=== PATIENT | female | born 1970 | race American Indian/Alaskan Native ===

== ENCOUNTER 2019-04-25 08:02 | Outpatient (CLI) | payer BC ==
--- NOTE | 2019-04-25 09:06 | Mammography Report ---
DIGITAL SCREENING MAMMOGRAM WITH CAD, 04/25/2019 INDICATION: Routine screening mammography. Status post left axillary lymph node biopsy 09/07/2018. TECHNIQUE: Digital bilateral 2D mammography was obtained in the craniocaudal and mediolateral obliq ue projections. COMPARISON: 09/07/2018 and 08/08/2013 FINDINGS: Breast Density: The breasts are heterogeneously dense, which may obscure small masses. Scattered bila teral benign calcifications. The previously biopsied left axillary lymph node is no longer identified . There is no evidence of dominant mass, suspicious calcifications or architectural distortion in eit her breast. IMPRESSION: BI-RADS Category 2: Benign. No mammographic evidence of malignancy. Recommend routine screening ma mmography in one year. A "normal" or negative report should not discourage follow up or biopsy of a clinically significant f inding. A written summary of these findings will be mailed to the patient. The patient will be entered into a mammography reporting system which will generate a reminder letter for the patient's next appointmen t at the appropriate interval. The [employer] recommends yearly mammograms starting at age 40 and continuing as l thiago as a woman is in good health. Breast MRI is recommended for women with an approximate 20-25% or greater lifetime risk of breast cancer, including women with a strong family history of breast or ova hafsa cancer or who have been treated for Hodgkin's disease. Signer Name: Marvin Trinidad MD Signed: 04/25/2019 10:01 AM Workstation Name: [id number]
== END 2019-04-25 08:03 | disposition home or self-care (01) ==
LOC: SPVWC 08:02
PROVIDERS: ATTEND Surgery
DX: Z12.31 Encounter for screening mammogram for malignant neoplasm of breast (principal); I10 Essential (primary) hypertension; E11.9 Type 2 diabetes mellitus without complications; E66.9 Obesity, unspecified
CPT/HCPCS: 77067

== ENCOUNTER 2021-03-19 18:20 | Inpatient (IN) | payer BC ==
--- NOTE | 2021-03-19 20:06 | Event Note ---
ED Screening Note Date of service: 03/19/21 Time: 20:05 ED Screening Note: Patient presents to the ER today with worsening shortness of breath for the past 3 months. He also reports elevated blood pressure today. Past medical history significant for sleep apnea, arthritis, hypertension, and asthma. Patient admits that her blood pressure has never been really well controlled on her blood pressure medication but when she went to a local urgent care today for shortness of breath it was noted that her blood pressure was in the 200s systolic and she was sent to to the ER. Patient states that she uses her albuterol MDI as needed but over the past 3 months has not been working. She reports intermittent productive cough and wheezing. She denies any chest pain, leg swelling or calf pain. This initial assessment/diagnostic orders/clinical plan/treatment(s) is/are subject to change based on patients health status, clinical progression and re- assessment by fellow clinical providers in the ED. Further treatment and workup at subsequent clinical providers discretion. Patient/guardian urged not to elope from the ED as their condition may be serious if not clinically assessed and managed. Initial orders include: Cardiac work-up
--- NOTE | 2021-03-19 20:37 | XRay Report ---
XR chest routine 2V INDICATION / CLINICAL INFORMATION: Dyspnea COMPARISON: None available. FINDINGS: SUPPORT DEVICES: None. HEART / MEDIASTINUM: Prominent cardiac silhouette LUNGS / PLEURA: Mild peribronchial thickening. Blunting of the costophrenic sulci. No pneumothorax. ADDITIONAL FINDINGS: No significant additional findings. IMPRESSION: 1. Prominent cardiac silhouette with interstitial edema and small bilateral pleural effusions. Signer Name: Elvin Alicea MD Signed: 03/19/2021 8:32 PM Workstation Name: [id number]
--- NOTE | 2021-03-19 20:43 | Emergency Department Report ---
ED Shortness of Breath HPI - General Chief Complaint: Dyspnea/Respdistress Stated Complaint: SOB, ELEVATED BLOOD PRESSURE Time Seen by Provider: 03/19/21 20:38 Source: patient Mode of arrival: Ambulatory Limitations: No Limitations - History of Present Illness Initial Comments: Patient is a 50-year-old female that presents emergency room with complaints of shortness of breath. Patient states that her shortness of breath been going on for 3 months. Patient states that her shortness of breath is worsening. Patient states that her shortness of breath is better with rest and worse with exertion. Patient states she is also having elevated blood pressure. Patient states her systolic is greater than 200 all the time. Patient states she has seen her primary care and they did keep increasing her asthma inhaler. Patient states she is using her albuterol multiple times per day. Patient states that her shortness of breath sometimes improved with the asthma inhaler. Patient states she is taking all of her medications as directed. Patient denies recent travel. Patient denies recent international travel. Patient denies exposure to the novel coronavirus. Patient denies sick contacts. Patient denies fever and chills. Patient denies cough. Patient denies diarrhea. Patient denies coming in contact with anybody with symptoms of the novel coronavirus. MD Complaint: shortness of breath -: month(s) Severity: severe Consistency: constant Improves With: rest Worsens With: exertion Known History Of: asthma Treatments Prior to Arrival: bronchodilator - Related Data Home Oxygen Therapy: No Home Medications Medication Instructions Recorded Confirmed Last Taken Aspirin [Aspir-Low] 81 mg PO DAILY 10/07/18 10/20/18 10/14/18 Ibuprofen [Ibu] 800 mg PO PRN PRN 10/07/18 10/07/18 Unknown Insulin Degludec (Nf) [Tresiba 75 unit SQ QHS 10/07/18 10/20/18 10/19/18 Flextouch U-100] Irbesartan/Hydrochlorothiazide 1 each PO DAILY 10/07/18 10/20/18 10/20/18 [Avalide 150-12.5 mg Tablet] Linagliptin [Tradjenta] 5 mg PO QDAY 10/07/18 10/20/18 10/19/18 Metformin HCl [Glucophage] 1,000 mg PO BID 10/07/18 10/20/18 10/19/18 buPROPion HCL [buPROPion] 150 mg PO TID 10/07/18 10/20/18 10/20/18 traZODone [Desyrel] 25 mg PO QHS 10/07/18 10/20/18 10/19/18 Previous Rx's Medication Instructions Recorded Last Taken Type HYDROcodone/APAP 5-325 [[place] 1 each PO Q6HR PRN #20 tablet 10/20/18 Unknown Rx 5/325] Allergies Allergy/AdvReac Type Severity Reaction Status Date / Time No Known Allergies Allergy Verified 10/07/18 13:42 ED Review of Systems ROS: Stated complaint: SOB, ELEVATED BLOOD PRESSURE Other details as noted in HPI Constitutional: denies: chills, fever Eyes: denies: eye pain, eye discharge, vision change ENT: denies: ear pain, throat pain Respiratory: shortness of breath. denies: cough, wheezing Cardiovascular: denies: chest pain, palpitations Endocrine: no symptoms reported Gastrointestinal: denies: abdominal pain, nausea, diarrhea Genitourinary: denies: urgency, dysuria, discharge Musculoskeletal: denies: back pain, joint swelling, arthralgia Skin: denies: rash, lesions Neurological: denies: headache, weakness, paresthesias Psychiatric: denies: anxiety, depression Hematological/Lymphatic: denies: easy bleeding, easy bruising ED Past Medical Hx - Past Medical History Previous Medical History?: Yes Hx Hypertension: Yes (took antihypertensives this morning) Hx Heart Attack/AMI: No Hx Diabetes: Yes Hx Liver Disease: No Hx Renal Disease: No Hx Seizures: No Hx Asthma: No Hx HIV: No - Surgical History Past Surgical History?: Yes Hx Breast Surgery: Yes (BREAST BX) - Family History Family history: no significant - Social History Smoking Status: Never Smoker Substance Use Type: None - Medications Home Medications: Home Medications Medication Instructions Recorded Confirmed Last Taken Type Aspirin [Aspir-Low] 81 mg PO DAILY 10/07/18 10/20/18 10/14/18 History Ibuprofen [Ibu] 800 mg PO PRN PRN 10/07/18 10/07/18 Unknown History Insulin Degludec (Nf) [Tresiba 75 unit SQ QHS 10/07/18 10/20/18 10/19/18 History Flextouch U-100] Irbesartan/Hydrochlorothiazide 1 each PO DAILY 10/07/18 10/20/18 10/20/18 History [Avalide 150-12.5 mg Tablet] Linagliptin [Tradjenta] 5 mg PO QDAY 10/07/18 10/20/18 10/19/18 History Metformin HCl [Glucophage] 1,000 mg PO BID 10/07/18 10/20/18 10/19/18 History buPROPion HCL [buPROPion] 150 mg PO TID 10/07/18 10/20/18 10/20/18 History traZODone [Desyrel] 25 mg PO QHS 10/07/18 10/20/18 10/19/18 History HYDROcodone/APAP 5-325 [[place] 1 each PO Q6HR PRN #20 tablet 10/20/18 Unknown Rx 5/325] ED Physical Exam - General Limitations: No Limitations General appearance: alert, in no apparent distress - Head Head exam: Present: atraumatic, normocephalic - Eye Eye exam: Present: normal appearance - ENT ENT exam: Present: mucous membranes moist - Neck Neck exam: Present: normal inspection - Respiratory Respiratory exam: Present: normal lung sounds bilaterally. Absent: respiratory distress - Cardiovascular Cardiovascular Exam: Present: regular rate, normal rhythm. Absent: systolic murmur, diastolic murmur, rubs, gallop - GI/Abdominal GI/Abdominal exam: Present: soft, normal bowel sounds - Extremities Exam Extremities exam: Present: normal inspection - Back Exam Back exam: Present: normal inspection - Neurological Exam Neurological exam: Present: alert, oriented X3 - Psychiatric Psychiatric exam: Present: normal affect, normal mood - Skin Skin exam: Present: warm, dry, intact, normal color. Absent: rash ED Course Vital Signs 03/19/21 03/19/21 03/19/21 19:21 20:21 20:40 Temperature 98.4 F Pulse Rate 107 H 111 H 106 H Respiratory 18 22 28 H Rate Blood Pressure 185/105 182/107 Blood Pressure 202/118 [Left] O2 Sat by Pulse 97 98 98 Oximetry 03/19/21 03/19/21 03/19/21 20:41 20:45 20:52 Temperature Pulse Rate 108 H 106 H Respiratory 22 18 22 Rate Blood Pressure 180/108 Blood Pressure 182/107 [Left] O2 Sat by Pulse 98 97 98 Oximetry 03/19/21 03/19/21 21:01 21:15 Temperature Pulse Rate 102 H 103 H Respiratory 21 29 H Rate Blood Pressure 182/112 181/117 Blood Pressure [Left] O2 Sat by Pulse 98 97 Oximetry - Reevaluation(s) Reevaluation #1: Patient given IV Lasix. I discussed all results with patient. I discussed plan of care with patient. Patient agrees with plan of care and admission. Patient to be admitted to the hospitalist service. 03/19/21 21:39 - Consultations Consultation #1: I discussed all results with patient. I discussed plan of care with patient. Patient agrees with plan of care and admission. Patient to be admitted to the hospitalist service. 03/19/21 21:41 ED Medical Decision Making - Lab Data Result diagrams: 03/19/21 20:30 03/19/21 20:30 - EKG Data -: EKG Interpreted by Me EKG shows normal: sinus rhythm, axis, intervals, QRS complexes, ST-T waves Rate: tachycardia - Radiology Data Radiology results: report reviewed, image reviewed interpreted by me: Chest x-ray: No pneumonia, no pneumothorax, no foreign body, no osseous findings, pulmonary edema and increased cardiac silhouette. XR chest routine 2V INDICATION / CLINICAL INFORMATION: Dyspnea COMPARISON: None available. FINDINGS: SUPPORT DEVICES: None. HEART / MEDIASTINUM: Prominent cardiac silhouette LUNGS / PLEURA: Mild peribronchial thickening. Blunting of the costophrenic sulci. No pneumothorax. ADDITIONAL FINDINGS: No significant additional findings. IMPRESSION: 1. Prominent cardiac silhouette with interstitial edema and small bilateral pleural effusions. - Medical Decision Making Patient is a 50-year-old female who presents emergency room with complaints of shortness of breath x3 months. Patient discharged respiration. Patient was complained of elevated blood pressure. Patient found to have elevated hypertension. Patient had labs done which were essentially unremarkable except for elevated LFTs and elevated BNP. Patient's troponin was negative. Patient had an EKG which is negative for acute findings and was consistent with sinus tachycardia. Patient had no ST changes. Patient had a chest x-ray done in the ER. Patient chest x-ray shows enlarged heart and pulmonary edema. Patient does not have a history of CHF. Patient given IV Lasix. Patient's blood pressure improved. I personally reviewed the chest x-ray and EKG. Patient admitted to the hospital service for further evaluation treatment. Critical care time documented due to the multiple reassessments, prolonged time at the bedside, interpretation of diagnostics and labs. - Differential Diagnosis CHF, new onset CHF, SOB, bronchitis, pneumonia, Critical Care Time: Yes Critical care time in (mins) excluding proc time.: 35 Critical care attestation.: If time is entered above; I have spent that time in minutes in the direct care of this critically ill patient, excluding procedure time. Critical Care Time: 35 minutes ED Disposition Clinical Impression: Shortness of breath, New onset of congestive heart failure, Pulmonary edema cardiac cause, Hypertensive urgency, malignant Disposition: 09 OP ADMIT IP TO THIS HOSP Is pt being admited?: Yes Does the pt Need Aspirin: No Condition: Critical Instructions: Pulmonary Edema (ED) Time of Disposition: 21:40
[2021-03-19 20:45] LABS: Basophils # (Auto) 0.1 K/mm3 (0.0-0.1); Basophils % (Auto) 0.6 % (0.0-1.8); Eosinophils # (Auto) 0.1 K/mm3 (0.0-0.4); Eosinophils % (Auto) 0.9 % (0.0-4.3); Hematocrit 35.6 % (30.3-42.9); Hemoglobin 11.3 gm/dl (10.1-14.3); Lymphocytes # (Auto) 1.1 K/mm3 (1.2-5.4); Lymphocytes % (Auto) 13.8 % (13.4-35.0); Mean Corpuscular HGB Conc 32 % (30-34); Mean Corpuscular Volume 79 fl (79-97); Monocytes # (Auto) 0.7 K/mm3 (0.0-0.8); Platelet Count 329 K/mm3 (140-440); Red Blood Count 4.51 M/mm3 (3.65-5.03)
[2021-03-19 20:56] LABS: INR 1.24 (0.87-1.13); Partial Thromboplastin Time 35.4 Sec. (24.2-36.6)
[2021-03-19 21:04] LABS: Alanine Aminotransferase 67 units/L (7-56); Albumin 3.7 g/dL (3.9-5); Blood Urea Nitrogen 12 mg/dL (7-17); Calcium 9.2 mg/dL (8.4-10.2); Hemolysis Index 2
[2021-03-19 21:09] LABS: BUN/Creatinine Ratio 17
[2021-03-19] MEDS ORDERED: FUROSEMIDE 40 MG/4 ML INJ IV ONE (21:36)
[2021-03-19] MEDS ORDERED: DEXTROSE 50% IN WATER (25GM) 50 ML SYRINGE IV PRN ×2 (22:09→22:23)
[2021-03-19] MEDS ORDERED: NITROGLYCERIN 0.4 MG TAB SUBL SL PRN (22:09)
[2021-03-19] MEDS ORDERED: ONDANSETRON 4 MG/2 ML INJ IV PRN (22:09)
[2021-03-19] MEDS ORDERED: ACETAMINOPHEN 325 MG TAB PO PRN (22:09)
[2021-03-19] MEDS ORDERED: ALBUTEROL 2.5 MG/3 ML NEBU IH PRN (22:09)
[2021-03-19] MEDS ORDERED: IBUPROFEN 800 MG TAB PO PRN (22:12)
[2021-03-19] MEDS ORDERED: HYDROcodone/ACETAMINOPHEN 5-325 MG TAB PO PRN (22:12)
--- NOTE | 2021-03-19 22:19 | History and Physical Report ---
History of Present Illness Date of examination: 03/19/21 Date of admission: 03/19/21 Chief complaint: Dyspnea Respiratory distress History of present illness: 50-year-old female with past medical history of hypertension diabetes was brought to the emergency room with complaints of shortness of breath been going on for 3 months. Patient states that her shortness of breath is worsening. Patient states that her shortness of breath is better with rest and worse with exertion. Patient states she is also having elevated blood pressure. Patient states her systolic is greater than 200 all the time. Patient states she has seen her primary care and they did keep increasing her asthma inhaler. Patient states she is using her albuterol multiple times per day. Patient states that her shortness of breath sometimes improved with the asthma inhaler. Patient states she is taking all of her medications as directed. In the emergency room patient's BNP is 1419. Chest x-ray shows prominent cardiac silhouette with interstitial edema and small bilateral pleural effusion Past History Past Medical History: hypertension Medications and Allergies Allergies Allergy/AdvReac Type Severity Reaction Status Date / Time No Known Allergies Allergy Verified 10/07/18 13:42 Home Medications Medication Instructions Recorded Confirmed Last Taken Type Aspirin [Aspir-Low] 81 mg PO DAILY 10/07/18 10/20/18 10/14/18 History Ibuprofen [Ibu] 800 mg PO PRN PRN 10/07/18 10/07/18 Unknown History Insulin Degludec (Nf) [Tresiba 75 unit SQ QHS 10/07/18 10/20/18 10/19/18 History Flextouch U-100] Irbesartan/Hydrochlorothiazide 1 each PO DAILY 10/07/18 10/20/18 10/20/18 History [Avalide 150-12.5 mg Tablet] Linagliptin [Tradjenta] 5 mg PO QDAY 10/07/18 10/20/18 10/19/18 History Metformin HCl [Glucophage] 1,000 mg PO BID 10/07/18 10/20/18 10/19/18 History buPROPion HCL [buPROPion] 150 mg PO TID 10/07/18 10/20/18 10/20/18 History traZODone [Desyrel] 25 mg PO QHS 10/07/18 10/20/18 10/19/18 History HYDROcodone/APAP 5-325 [[place] 1 each PO Q6HR PRN #20 tablet 10/20/18 Unknown Rx ] Review of Systems Cardiovascular: edema, shortness of breath, dyspnea on exertion Respiratory: shortness of breath, dyspnea on exertion Exam - Constitutional Vitals: Temp Pulse Resp BP Pulse Ox 98.4 F 103 H 29 H 181/117 97 03/19/21 19:21 03/19/21 21:15 03/19/21 21:15 03/19/21 21:15 03/19/21 21:15 General appearance: Present: no acute distress, well-nourished - EENT Eyes: Present: PERRL ENT: hearing intact, clear oral mucosa - Neck Neck: Present: supple, normal ROM - Respiratory Respiratory effort: normal Respiratory: bilateral: rales - Cardiovascular Heart Sounds: Present: S1 & S2. Absent: rub, click - Extremities Extremities: pulses symmetrical Extremity abnormal: edema Peripheral Pulses: within normal limits - Abdominal General gastrointestinal: Present: soft, non-tender, non-distended, normal bowel sounds Female genitourinary: Present: normal - Integumentary Integumentary: Present: clear, warm, dry - Musculoskeletal Musculoskeletal: gait normal, strength equal bilaterally - Psychiatric Psychiatric: appropriate mood/affect, intact judgment & insight - Neurologic Neurologic: CNII-XII intact, moves all extremities HEART Score - HEART Score Troponin: Troponin T < 0.010 ng/mL (0.00-0.029) 03/19/21 20:30 Results - Labs CBC & Chem 7: 03/19/21 20:30 03/19/21 20:30 Labs: Laboratory Last Values WBC 8.0 K/mm3 (4.5-11.0) 03/19/21 20:30 RBC 4.51 M/mm3 (3.65-5.03) 03/19/21 20:30 Hgb 11.3 gm/dl (10.1-14.3) 03/19/21 20:30 Hct 35.6 % (30.3-42.9) 03/19/21 20:30 MCV 79 fl (79-97) 03/19/21 20:30 MCH 25 pg (28-32) L 03/19/21 20:30 MCHC 32 % (30-34) 03/19/21 20:30 RDW 17.0 % (13.2-15.2) H 03/19/21 20:30 Plt Count 329 K/mm3 (140-440) 03/19/21 20:30 Lymph % (Auto) 13.8 % (13.4-35.0) 03/19/21 20:30 Ross % (Auto) 9.0 % (0.0-7.3) H 03/19/21 20:30 Eos % (Auto) 0.9 % (0.0-4.3) 03/19/21 20:30 Baso % (Auto) 0.6 % (0.0-1.8) 03/19/21 20:30 Lymph # (Auto) 1.1 K/mm3 (1.2-5.4) L 03/19/21 20:30 Ross # (Auto) 0.7 K/mm3 (0.0-0.8) 03/19/21 20:30 Eos # (Auto) 0.1 K/mm3 (0.0-0.4) 03/19/21 20:30 Baso # (Auto) 0.1 K/mm3 (0.0-0.1) 03/19/21 20:30 Seg Neutrophils % 75.7 % (40.0-70.0) H 03/19/21 20:30 Seg Neutrophils # 6.1 K/mm3 (1.8-7.7) 03/19/21 20:30 PT 15.4 Sec. (12.2-14.9) H 03/19/21 20:30 INR 1.24 (0.87-1.13) H 03/19/21 20:30 APTT 35.4 Sec. (24.2-36.6) 03/19/21 20:30 Sodium 142 mmol/L (137-145) 03/19/21 20:30 Potassium 4.0 mmol/L (3.6-5.0) 03/19/21 20:30 Chloride 105.3 mmol/L (98-107) 03/19/21 20:30 Carbon Dioxide 27 mmol/L (22-30) 03/19/21 20:30 Anion Gap 14 mmol/L 03/19/21 20:30 BUN 12 mg/dL (7-17) 03/19/21 20:30 Creatinine 0.7 mg/dL (0.6-1.2) 03/19/21 20:30 Estimated GFR > 60 ml/min 03/19/21 20:30 BUN/Creatinine Ratio 17 % 03/19/21 20:30 Glucose 92 mg/dL (65-100) 03/19/21 20:30 Calcium 9.2 mg/dL (8.4-10.2) 03/19/21 20:30 Magnesium 1.90 mg/dL (1.7-2.3) 03/19/21 20:30 Total Bilirubin 0.20 mg/dL (0.1-1.2) 03/19/21 20:30 AST 45 units/L (5-40) H 03/19/21 20:30 ALT 67 units/L (7-56) H 03/19/21 20:30 Alkaline Phosphatase 107 units/L (35-129) 03/19/21 20:30 Troponin T < 0.010 ng/mL (0.00-0.029) 03/19/21 20:30 NT-Pro-B Natriuret Pep 1419 pg/mL (0-900) H 03/19/21 20:50 Total Protein 7.8 g/dL (6.3-8.2) 03/19/21 20:30 Albumin 3.7 g/dL (3.9-5) L 03/19/21 20:30 Albumin/Globulin Ratio 0.9 % 03/19/21 20:30 Lipase 39 units/L (13-60) 03/19/21 20:30 - Imaging and Cardiology Chest x-ray: report reviewed Assessment and Plan VTE prophylaxis?: Chemical Plan of care discussed with patient/family: Yes - Patient Problems (1) New onset of congestive heart failure Current Visit: Yes Status: Acute Plan to address problem: Admit the patient to the medical telemetry. Put the patient on CHF pathway. Cardiac diet/1800 kcal ADA diet. Oxygen by nasal cannula 3 to per minute. Lasix 40 mg IV every 12 hours. Fluid restriction. Maintain intake and output. Echocardiogram. Consult cardiology if needed (2) Hypertensive urgency, malignant Current Visit: Yes Status: Acute Plan to address problem: Lisinopril 20 mg p.o. daily. We also continue Irbesartan and hydrochlorothiazide 150-12.5 mg p.o. daily. Hydralazine 10 mg IV every 6 hours as needed. We will monitor the blood pressure closely (3) Shortness of breath Current Visit: Yes Status: Acute Plan to address problem: Oxygen per nasal cannula 3 L/min. DuoNeb by nebulizer every 4 hours as needed. Lasix 40 mg IV every 12 hours (4) Diabetes 1.5, managed as type 2 Current Visit: Yes Status: Acute Plan to address problem: 1800 kcal ADA diet. Humalog sliding scale Accu-Chek before meals and at bedtime moderate dose coverage. Diabetic education. Repeat BMP in the morning (5) DVT prophylaxis Current Visit: Yes Status: Acute Plan to address problem: Heparin 5000 units subcu every 8 hours for DVT prophylaxis. Pepcid 20 mg p.o. twice daily for GI prophylaxis. Patient is a full code
[2021-03-19] MEDS ORDERED: hydrALAZINE 20 MG/1 ML INJ IV PRN (22:23)
[2021-03-20] MEDS: IPRATROPIUM/ALBUTEROL SULFATE 3 ML AMPUL.NEB IH SCH ×4 (02:53→20:52)
[2021-03-20] MEDS: FUROSEMIDE 40 MG/4 ML INJ IV SCH ×2 (05:17→18:16)
[2021-03-20] MEDS: HEPARIN 5,000 UNIT/1 ML VIAL SUB-Q SCH ×3 (05:17→21:53)
[2021-03-20 06:22] LABS: Basophils # (Auto) 0.1 K/mm3 (0.0-0.1); Basophils % (Auto) 0.8 % (0.0-1.8); Eosinophils # (Auto) 0.2 K/mm3 (0.0-0.4); Hematocrit 36.1 % (30.3-42.9); Hemoglobin 11.6 gm/dl (10.1-14.3); Lymphocytes # (Auto) 1.4 K/mm3 (1.2-5.4); Lymphocytes % (Auto) 16.8 % (13.4-35.0); Mean Corpuscular HGB Conc 32 % (30-34); Mean Corpuscular Volume 78 fl (79-97); Monocytes # (Auto) 0.9 K/mm3 (0.0-0.8); Monocytes % (Auto) 10.8 % (0.0-7.3); Platelet Count 332 K/mm3 (140-440); Red Blood Count 4.61 M/mm3 (3.65-5.03); Red Cell Distribution Width 16.6 % (13.2-15.2)
[2021-03-20 06:39] LABS: Blood Urea Nitrogen 10 mg/dL (7-17); Calcium 9.4 mg/dL (8.4-10.2); Hemolysis Index 2
[2021-03-20 06:40] LABS: BUN/Creatinine Ratio 14
[2021-03-20] MEDS: metFORMIN 500 MG TAB PO SCH ×2 (08:37→17:13)
[2021-03-20] MEDS: INSULIN LISPRO 100 UNIT/ML SUB-Q SCH ×3 (08:38→22:41)
[2021-03-20] MEDS ORDERED: HYDROCHLOROTHIAZIDE PO SCH (10:00)
[2021-03-20] MEDS ORDERED: NON-FORMULARY EACH (Metformin Hcl [Glucophage] 1,000 MG Tablet) PO SCH (10:00)
[2021-03-20] MEDS ORDERED: hydroCHLOROthiazide 12.5 MG CAP PO SCH (10:00)
[2021-03-20] MEDS ORDERED: IRBESARTAN PO SCH (10:00)
[2021-03-20] MEDS ORDERED: [UNRECOGNIZED DRUG - OTHER] PO SCH (10:00)
[2021-03-20] MEDS ORDERED: LOSARTAN 50 MG TAB PO SCH (10:00)
--- NOTE | 2021-03-20 10:06 | Electrocardiograph Report ---
[facility] Test Date: 2021-03-19 Test Time: 20:13:37 Pat Name: PATRICIA CORCORAN Department: Room: A457 1 Gender: F [employer] Tender: ODIN : 1970 Requested By: ONOFRE DONALDSON Order Number: [id number] Reading MD: Lindsey Tamayo Measurements Intervals [place] Rate: 112 P: 61 [place]: 134 QRS: 15 QRSD: 89 T: 53 QT: 363 QTc: 496 Interpretive Statements Sinus tachycardia No previous ECG available for comparison Electronically Signed On 03-20-2021 10:05:58 EDT by Lindsey Tamayo
[2021-03-20] MEDS: LISINOPRIL 20 MG TAB PO SCH (10:52)
[2021-03-20] MEDS: ASPIRIN EC 81 MG TAB PO SCH (10:53)
[2021-03-20] MEDS: LINAGLIPTIN 5 MG TAB PO SCH (10:53)
[2021-03-20] MEDS: buPROPion 75 MG TAB PO SCH ×3 (10:53→21:52)
[2021-03-20] MEDS: FAMOTIDINE 20 MG TAB PO SCH ×2 (10:53→21:52)
--- NOTE | 2021-03-20 14:19 | Progress Note ---
Assessment and Plan 50-year-old female with past medical history of hypertension diabetes was brought to the emergency room with complaints of shortness of breath been going on for 3 months. In the emergency room patient's BNP is 1419. Chest x-ray shows prominent cardiac silhouette with interstitial edema and small bilateral pleural effusion. Patient was admitted for new onset CHF exacerbation. A/P --New onset of congestive heart failure rEf 25% Cardiac diet/1800 kcal ADA diet. Oxygen by nasal cannula 3 to per minute. Lasix 40 mg IV every 12 hours. Fluid restriction. Maintain intake and output. Ordered echocardiogram. Consulted cardiology --Hypertensive urgency, malignant Continue home meds and adjust medications as needed hydralazine 10 mg IV every 6 hours as needed. We will monitor the blood pressure closely --Acute hypoxemia Due to CHF exacerbation, now resolved Oxygen per nasal cannula 3 L/min. DuoNeb by nebulizer every 4 hours as needed. Lasix 40 mg IV every 12 hours -- Diabetes 1.5, managed as type 2 1800 kcal ADA diet. Humalog sliding scale Accu-Chek before meals and at bedtime moderate dose coverage. Diabetic education. Repeat BMP in the morning --Morbid obesity, dietary and exercise recommendation when clinically more stable as outpatient. Continue low-fat and low-salt diabetic diet for now -- DVT prophylaxis Heparin 5000 units subcu every 8 hours for DVT prophylaxis. Pepcid 20 mg p.o. twice daily for GI prophylaxis. -- Patient is a full code Daily clinical course: 03/20/21: 2D echo today showed EF 25 to 30%, continue IV diuresis, consult cardio logy, continue CHF protocol and follow cardiology recommendation. Subjective Date of service: 03/20/21 Interval history: Patient seen and examined. Medical records and medication list reviewed. No acute event overnight noted by the RN. Patient states her breathing has significantly improved. Still has lower extremity edema patient is tolerating diet. Discussed plan of care at bedside with patient. Objective - Exam Narrative Exam: GENERAL: well-developed morbidly obese -[place] female lying on bed appeared to be in no discomfort. HEENT: Normocephalic. Atraumatic. No conjunctival congestion or icterus. Patient has moist mucous membranes. NECK: Supple. Trachea midline. CHEST/LUNGS: Few crackles auscultated bilaterally, breathing nonlabored. No wheezes crackles or rhonchi. HEART/CARDIOVASCULAR: Regular in rate and rhythm. S1 and S2 positive. ABDOMEN: Abdomen is soft, nontender. Patient has normal bowel sounds. SKIN: There is no rash. Warm and dry. NEURO: No focal motor deficit. Follows command. MUSCULOSKELETAL: No joint effusion or tenderness. EXTRIMITY: 1+ pitting edema, no cyanosis or clubbing. PSYCH: Cooperative. - Constitutional Vitals: Vital Signs - 12hr 03/20/21 03/20/21 03/20/21 02:41 04:52 05:32 Temperature 98.4 F Pulse Rate 98 H Pulse Rate [ 102 H Bilateral] Respiratory 18 Rate Respiratory 22 Rate [Bilateral ] Blood Pressure 174/95 O2 Sat by Pulse 91 Oximetry 03/20/21 03/20/21 03/20/21 07:43 07:50 08:03 Temperature 98.2 F Pulse Rate 89 95 H Pulse Rate [ Bilateral] Respiratory 19 Rate Respiratory Rate [Bilateral ] Blood Pressure 180/101 O2 Sat by Pulse 87 99 Oximetry 03/20/21 03/20/21 11:09 11:20 Temperature 98.8 F Pulse Rate 101 H Pulse Rate [ Bilateral] Respiratory 19 Rate Respiratory Rate [Bilateral ] Blood Pressure 169/91 O2 Sat by Pulse 91 98 Oximetry - Labs CBC & Chem 7: 03/20/21 05:56 03/20/21 05:56 Labs: Abnormal lab results 03/19/21 03/19/21 03/19/21 Range/Units 20:30 20:30 20:30 MCV (79-97) fl MCH 25 L (28-32) pg RDW 17.0 H (13.2-15.2) % [place] % (Auto) 9.0 H (0.0-7.3) % Lymph # (Auto) 1.1 L (1.2-5.4) K/mm3 [place] # (Auto) (0.0-0.8) K/mm3 Seg Neutrophils % 75.7 H (40.0-70.0) % PT 15.4 H (12.2-14.9) Sec. INR 1.24 H (0.87-1.13) Potassium (3.6-5.0) mmol/L POC Glucose (70-105) mg/dL AST 45 H (5-40) units/L ALT 67 H (7-56) units/L NT-Pro-B Natriuret Pep (0-900) pg/mL Albumin 3.7 L (3.9-5) g/dL 03/19/21 03/20/21 03/20/21 Range/Units 20:50 05:56 05:56 MCV 78 L (79-97) fl MCH 25 L (28-32) pg RDW 16.6 H (13.2-15.2) % [place] % (Auto) 10.8 H (0.0-7.3) % Lymph # (Auto) (1.2-5.4) K/mm3 [place] # (Auto) 0.9 H (0.0-0.8) K/mm3 Seg Neutrophils % (40.0-70.0) % PT (12.2-14.9) Sec. INR (0.87-1.13) Potassium 3.5 L (3.6-5.0) mmol/L POC Glucose (70-105) mg/dL AST (5-40) units/L ALT (7-56) units/L NT-Pro-B Natriuret Pep 1419 H (0-900) pg/mL Albumin (3.9-5) g/dL 03/20/21 03/20/21 Range/Units 08:29 11:11 MCV (79-97) fl MCH (28-32) pg RDW (13.2-15.2) % [place] % (Auto) (0.0-7.3) % Lymph # (Auto) (1.2-5.4) K/mm3 [place] # (Auto) (0.0-0.8) K/mm3 Seg Neutrophils % (40.0-70.0) % PT (12.2-14.9) Sec. INR (0.87-1.13) Potassium (3.6-5.0) mmol/L POC Glucose 168 H 131 H (70-105) mg/dL AST (5-40) units/L ALT (7-56) units/L NT-Pro-B Natriuret Pep (0-900) pg/mL Albumin (3.9-5) g/dL HEART Score - HEART Score Troponin: Troponin T < 0.010 ng/mL (0.00-0.029) 03/19/21 23:15
[2021-03-20] MEDS: SPIRONOLACTONE 25 MG TAB PO SCH (16:13)
--- NOTE | 2021-03-20 16:17 | Consultation ---
History of Present Illness Consult date: 03/20/21 Requesting physician: MELINDA COONEY Consult reason: congestive heart failure History of present illness: Pt is a 50-year-old AA female with a past medical hx of ROMEL (uses CPAP), HTN, and DM2, who presented with complaints of progressively worsening SOB x 3 months. Pt notes decreased exercise tolerance and reports orthopnea as well. She works in customer service and says she has trouble holding a conversation with clients without significant dyspnea. Over the past 1-2 weeks, she has had a bothersome cough, productive of clear and sometimes white sputum. She also states she has been noticing swelling in her abdomen. In addition, pt reports intermittent palpitations over the past 3 months. She was prescribed an albuterol inhaler by her PCP recently and states the palpitations occur after she uses her inhaler. Pt states she was never told she has asthma. She notes no relief of SOB with inhaler at home. BNP elevated at admission. CXR revealed cardiomegaly and pulmonary edema. Pt was started on IV Lasix 40mg BID and has been responding well. She states her breathing has improved today. Still with mild SOB and cough; however, not orthopneic upon exam. No previous cardiac workup available for review. Past History Past Medical History: diabetes, hypertension, other (ROMEL) Past Surgical History: tonsillectomy, Other (lymph node removal). denies: valve replacement, CABG, PTCA Social history: denies: smoking, alcohol abuse Family history: cancer, diabetes, stroke Medications and Allergies Allergies Allergy/AdvReac Type Severity Reaction Status Date / Time No Known Allergies Allergy Verified 10/07/18 13:42 Home Medications Medication Instructions Recorded Confirmed Last Taken Type Aspirin [Aspir-Low] 81 mg PO DAILY 10/07/18 10/20/18 10/14/18 History Ibuprofen [Ibu] 800 mg PO PRN PRN 10/07/18 10/07/18 Unknown History Insulin Degludec (Nf) [Tresiba 75 unit SQ QHS 10/07/18 10/20/18 10/19/18 History Flextouch U-100] Irbesartan/Hydrochlorothiazide 1 each PO DAILY 10/07/18 10/20/18 10/20/18 History [Avalide 150-12.5 mg Tablet] Linagliptin [Tradjenta] 5 mg PO QDAY 10/07/18 10/20/18 10/19/18 History Metformin HCl [Glucophage] 1,000 mg PO BID 10/07/18 10/20/18 10/19/18 History buPROPion HCL [buPROPion] 150 mg PO TID 10/07/18 10/20/18 10/20/18 History traZODone [Desyrel] 25 mg PO QHS 10/07/18 10/20/18 10/19/18 History HYDROcodone/APAP 5-325 [[place] 1 each PO Q6HR PRN #20 tablet 10/20/18 Unknown Rx 5/325] Active Meds: Active Medications Acetaminophen (Acetaminophen 325 Mg Tab) 650 mg PO Q4H PRN PRN Reason: Pain MILD(1-3)/Fever >100.5/BORGES Hydrocodone Bitart/Acetaminophen (Hydrocodone/Acetaminophen 5-325 Mg Tab) 1 each PO Q6HR PRN PRN Reason: Pain, Moderate (4-6) Albuterol (Albuterol 2.5 Mg/3 Ml Nebu) 2.5 mg IH Q3HRT PRN PRN Reason: Shortness Of Breath Albuterol/Ipratropium (Ipratropium/Albuterol Sulfate 3 Ml Ampul.Neb) 1 ampul IH Q6HRT [facility] Last Admin: 03/20/21 14:17 Dose: Not Given Documented by: Aspirin (Aspirin Ec 81 Mg Tab) 81 mg PO DAILY [facility] Last Admin: 03/20/21 10:53 Dose: 81 mg Documented by: Bupropion HCl (Bupropion 75 Mg Tab) 150 mg PO TID [facility] Last Admin: 03/20/21 10:53 Dose: 150 mg Documented by: Dextrose (Dextrose 50% In Water (25gm) 50 Ml Syringe) 50 ml IV Q30MIN PRN; Protocol PRN Reason: Hypoglycemia Famotidine (Famotidine 20 Mg Tab) 20 mg PO BID [facility] Last Admin: 03/20/21 10:53 Dose: 20 mg Documented by: Furosemide (Furosemide 40 Mg/4 Ml Inj) 40 mg IV BID@0600,1800 [facility] Last Admin: 03/20/21 05:17 Dose: 40 mg Documented by: Heparin Sodium (Porcine) (Heparin 5,000 Unit/1 Ml Vial) 5,000 unit SUB-Q Q8HR [facility] Last Admin: 03/20/21 05:17 Dose: 5,000 unit Documented by: Ibuprofen (Ibuprofen 800 Mg Tab) 800 mg PO DAILY PRN PRN Reason: Pain, Mild (1-3) Insulin Human Lispro (Insulin Lispro 100 Unit/Ml) 0 unit SUB-Q ACHS [facility]; Protocol Last Admin: 03/20/21 08:38 Dose: Not Given Documented by: Linagliptin (Linagliptin 5 Mg Tab) 5 mg PO QDAY [facility] Last Admin: 03/20/21 10:53 Dose: 5 mg Documented by: Lisinopril (Lisinopril 20 Mg Tab) 20 mg PO QDAY [facility] Last Admin: 03/20/21 10:52 Dose: 20 mg Documented by: Metformin HCl (Metformin 500 Mg Tab) 1,000 mg PO BIDDIAB [facility] Last Admin: 03/20/21 08:37 Dose: 1,000 mg Documented by: Nitroglycerin (Nitroglycerin 0.4 Mg Tab Subl) 0.4 mg SL .Q5MIN PRN PRN Reason: Chest Pain Ondansetron HCl (Ondansetron 4 Mg/2 Ml Inj) 4 mg IV Q8H PRN PRN Reason: Nausea And Vomiting Sodium Chloride (Sodium Chloride 0.9% 10 Ml Flush Syringe) 10 ml IV BID BRAEDEN Sodium Chloride (Sodium Chloride 0.9% 10 Ml Flush Syringe) 10 ml IV PRN PRN PRN Reason: LINE FLUSH Spironolactone (Spironolactone 25 Mg Tab) 25 mg PO QDAY [facility] Trazodone HCl (Trazodone 50 Mg Tab) 25 mg PO QHS [facility] Review of Systems Constitutional: weight gain, no fever, no chills, no sweats Ears, nose, mouth and throat: no nasal congestion, no sore throat Cardiovascular: orthopnea, palpitations, edema (abd), shortness of breath, dyspnea on exertion, paroxysmal nocturnal dyspnea, no chest pain, no syncope, no lightheadedness, no claudication Respiratory: cough with sputum, shortness of breath, dyspnea on exertion Gastrointestinal: no abdominal pain, no nausea, no vomiting, no diarrhea, no constipation Genitourinary Female: no pelvic pain, no flank pain, no dysuria Musculoskeletal: no neck stiffness, no neck pain, no myalgias Integumentary: no rash, no wounds Neurological: no head injury, no paralysis, no weakness, no parathesias, no numbness, no tingling, no seizures, no syncope, no vertigo, no headaches Endocrine: no cold intolerance, no heat intolerance Hematologic/Lymphatic: no easy bruising, no easy bleeding Allergic/Immunologic: no anaphylaxis Physical Examination Last Vital Signs Temp 98.8 F 03/20/21 11:09 Pulse 101 H 03/20/21 11:09 Resp 19 03/20/21 11:09 BP 169/91 03/20/21 11:09 Pulse Ox 98 03/20/21 11:20 General appearance: no acute distress HEENT: Positive: EOMI, Normocephaly, Mucus Membranes Moist Neck: Positive: neck supple, trachea midline. Negative: JVD/HJR Cardiac: Positive: S1/S2, Tachycardia. Negative: Audible Murmur Lungs: Positive: clear to auscultation (bilaterally). Negative: Wheezes Neuro: Positive: Grossly Intact Abdomen: Positive: Soft. Negative: Tender Skin: Negative: Rash, Wound Musculoskeletal: No Pain, Normal Range of Motion Extremities: Present: lower extr. pulses, warm. Absent: edema Results 03/20/21 05:56 03/20/21 05:56 Cardiac Enzymes 03/19/21 Range/Units 20:30 AST 45 H (5-40) units/L Coagulation 03/19/21 Range/Units 20:30 PT 15.4 H (12.2-14.9) Sec. INR 1.24 H (0.87-1.13) APTT 35.4 (24.2-36.6) Sec. CBC 03/19/21 03/20/21 Range/Units 20:30 05:56 WBC 8.0 8.4 (4.5-11.0) K/mm3 RBC 4.51 4.61 (3.65-5.03) M/mm3 Hgb 11.3 11.6 (10.1-14.3) gm/dl Hct 35.6 36.1 (30.3-42.9) % Plt Count 329 332 (140-440) K/mm3 Lymph # (Auto) 1.1 L 1.4 (1.2-5.4) K/mm3 [place] # (Auto) 0.7 0.9 H (0.0-0.8) K/mm3 Eos # (Auto) 0.1 0.2 (0.0-0.4) K/mm3 Baso # (Auto) 0.1 0.1 (0.0-0.1) K/mm3 Comprehensive Metabolic Panel 03/19/21 03/20/21 Range/Units 20:30 05:56 Sodium 142 144 (137-145) mmol/L Potassium 4.0 3.5 L (3.6-5.0) mmol/L Chloride 105.3 102.3 (98-107) mmol/L Carbon Dioxide 27 29 (22-30) mmol/L BUN 12 10 (7-17) mg/dL Creatinine 0.7 0.7 (0.6-1.2) mg/dL Glucose 92 74 (65-100) mg/dL Calcium 9.2 9.4 (8.4-10.2) mg/dL AST 45 H (5-40) units/L ALT 67 H (7-56) units/L Alkaline Phosphatase 107 (35-129) units/L Total Protein 7.8 (6.3-8.2) g/dL Albumin 3.7 L (3.9-5) g/dL - Imaging and Cardiology Echo: report reviewed (03/20/2021 - EF 25-30%, LV mildly dilated, mild diastolic dysfxn, no LV thrombus, normal RV systolic fxn, mildly thickened AV leaflets, mild MR, mild TR, RVSP 45mmHg, trace CA) EKG: report reviewed, image reviewed - EKG Interpretation EKG: no acute changes EKG interpretations - EKG Sinus rhythms and dysrhythmias: sinus tachycardia Assessment and Plan Echo reviewed - EF 25-30%, LV mildly dilated, mild diastolic dysfxn, no LV thrombus, normal RV systolic fxn, mildly thickened AV leaflets, mild MR, mild TR, RVSP 45mmHg, trace CA. Continue IV diuresis for now. Add Aldactone. Continue ACEI. Will initiate cardioselective beta ruth as tolerated. Plan for Lexiscan stress MPI in AM. NPO after midnight. Update provided to pt's sister via phone. All questions answered. Pt seen in conjunction with Dr. Harris, who agrees with the assessment and plan of care. - Patient Problems (1) Acute HFrEF (heart failure with reduced ejection fraction) Current Visit: Yes Status: Acute (2) Cardiomyopathy Current Visit: Yes Status: Acute (3) Asthma Current Visit: Yes Status: Suspected (4) ROMEL (obstructive sleep apnea) Current Visit: Yes Status: Chronic (5) Pulmonary HTN Current Visit: Yes Status: Chronic (6) HTN (hypertension) Current Visit: Yes Status: Chronic Qualifiers: Hypertension type: essential hypertension Qualified Code(s): I10 - Essential (primary) hypertension (7) DM2 (diabetes mellitus, type 2) Current Visit: Yes Status: Chronic
[2021-03-20] MEDS: METOPROLOL TARTRATE 25 MG TAB PO SCH ×2 (17:25→21:52)
[2021-03-20] MEDS ORDERED: traZODone 50 MG TAB PO SCH (22:00)
[2021-03-20] MEDS ORDERED: METOPROLOL TARTRATE 25 MG TAB PO SCH (22:00)
[2021-03-21] MEDS: FUROSEMIDE 40 MG/4 ML INJ IV SCH (05:41)
[2021-03-21] MEDS: INSULIN LISPRO 100 UNIT/ML SUB-Q SCH ×3 (05:41→12:33)
[2021-03-21] MEDS: HEPARIN 5,000 UNIT/1 ML VIAL SUB-Q SCH ×2 (05:41→14:35)
[2021-03-21] MEDS ORDERED: REGADENOSON 0.4 MG/5 ML INJ IV ONE (06:48)
[2021-03-21] MEDS: metFORMIN 500 MG TAB PO SCH ×2 (08:38→09:21)
[2021-03-21] MEDS: buPROPion 75 MG TAB PO SCH ×3 (08:39→14:36)
[2021-03-21] MEDS: IPRATROPIUM/ALBUTEROL SULFATE 3 ML AMPUL.NEB IH SCH ×2 (08:40→15:06)
[2021-03-21 09:03] VITALS: BP 157/91
--- NOTE | 2021-03-21 10:08 | Progress Note ---
Assessment and Plan Lexiscan stress MPI performed today revealed no significant ischemia, EF 35%. May transition to PO Lasix 40mg daily. Add Aldactone 25mg daily. Increase Lisinopril to 20mg BID. Increase Lopressor to 25mg BID. Otherwise stable cardiac status. Pt may be discharged from a Cardiology standpoint. Follow-up with Dr. Harris in our [place] office on 03/25/2021 @ 10:15am ([phone]). Pt seen in conjunction with Dr. Harris, who agrees with the assessment and plan of care. - Patient Problems (1) Acute HFrEF (heart failure with reduced ejection fraction) Current Visit: Yes Status: Acute (2) Non-ischemic cardiomyopathy Current Visit: Yes Status: Acute (3) Asthma Current Visit: Yes Status: Suspected (4) ROMEL (obstructive sleep apnea) Current Visit: Yes Status: Chronic (5) Pulmonary HTN Current Visit: Yes Status: Chronic (6) HTN (hypertension) Current Visit: Yes Status: Chronic Qualifiers: Hypertension type: essential hypertension Qualified Code(s): I10 - Essential (primary) hypertension (7) DM2 (diabetes mellitus, type 2) Current Visit: Yes Status: Chronic Subjective Date of service: 03/21/21 Principal diagnosis: Acute HFrEF Interval history: Seen in stress lab this AM. No complaints. Tele reviewed - SR 80s, no events. Objective Last Vital Signs Temp 97.5 F L 03/21/21 07:41 Pulse 81 03/21/21 08:00 Resp 20 03/21/21 07:41 BP 157/91 03/21/21 08:33 Pulse Ox 97 03/21/21 09:07 - Physical Examination General: No Apparent Distress HEENT: Positive: EOMI, Normocephaly, Mucus Membranes Moist Neck: Positive: neck supple, trachea midline. Negative: JVD/HJR Cardiac: Positive: Reg Rate and Rhythm, S1/S2 Lungs: Positive: clear to auscultation (bilaterally) Neuro: Positive: Grossly Intact Abdomen: Positive: Soft. Negative: Tender Skin: Negative: Rash, Wound Musculoskeletal: No Pain, Normal Range of Motion Extremities: Present: lower extr. pulses, warm. Absent: edema - Imaging and Cardiology EKG: report reviewed, image reviewed Nuclear stress test: report reviewed (03/21/2021 - no significant ischemia, EF 35%) Echo: report reviewed (03/20/2021 - EF 25-30%, LV mildly dilated, mild diastolic dysfxn, no LV thrombus, normal RV systolic fxn, mildly thickened AV leaflets, mild MR, mild TR, RVSP 45mmHg, trace MD) - Telemetry EKG Rhythm: Sinus Rhythm - EKG Sinus rhythms and dysrhythmias: sinus tachycardia
[2021-03-21] MEDS: FAMOTIDINE 20 MG TAB PO SCH (10:50)
[2021-03-21] MEDS: ASPIRIN EC 81 MG TAB PO SCH (10:50)
[2021-03-21] MEDS: SPIRONOLACTONE 25 MG TAB PO SCH (10:50)
[2021-03-21] MEDS: LINAGLIPTIN 5 MG TAB PO SCH (10:51)
[2021-03-21] MEDS ORDERED: amLODIPine 10 MG TAB PO SCH (11:00)
[2021-03-21] MEDS ORDERED: LISINOPRIL 20 MG TAB PO SCH (11:00)
[2021-03-21] MEDS ORDERED: METOPROLOL TARTRATE 25 MG TAB PO SCH (11:00)
--- NOTE | 2021-03-21 11:04 | Nuclear Medicine Report ---
APPROVED REPORT Exam: Nuclear Stress Test Indication: Chest pain Patient Location: [address] [place] [address] Room #: 457 Ht: 5 ft 4 in Wt: 206 lbs BSA: 1.98 m2 HR: 81 bpm BP: 151/90 mmHg BMI: 35.35 Rhythm: SINUS RHYTHM Medical History Medical History: SINUS RHYTHM Stress Test Details Stress Test: Pharmacologic stress testing performed using 0.4 mg of regadenoson per 5 mL given IV over 10 seconds. Reason for pharmacologic stress test: physical limitation. HR Resting HR: 81 bpmMax Heart Rate (APMHR): 168 bpm Max HR Achieved: 99 bpmTarget HR (85% APMHR): 142 bpm % of APMHR: 58 Recovery HR: 91 bpm BP Resting BP: 151/90 mmHg Max BP: 164/87 mmHg Recovery BP: 159/87 mmHg ECG Resting ECG: SINUS RHYTHM Clinical Reason for Termination: Completed protocol Stress Symptoms: None NM EXAM: Myocardial Perfusion REST/STRESS Imaging Protocol: Rest Tc-99m/Stress Tc-99m 1 day Resting Data Rest SPECT myocardial perfusion imaging was performed in supine position 45 minutes following the intravenous injection of 10 mCi of Tc-99m Myoview. Time of rest injection: 0645 Pharmacologic Stress Pharmacologic stress test was performed by injecting Regadenoson 0.4 mg IV push followed by the intravenous injection of 28 mCi of Tc-99m Myoview. Time of stress injection: 0830 Gated Stress SPECT was performed 30 minutes after stress injection. The images were gated to evaluate regional wall motion and calculate left ventricular ejection fraction. Study Quality Study: excellent Lung Uptake: Normal Study Data TID = 1.08. Perfusion Wall Motion moderate lv dsyfunction ef 35% Nuclear Conclusion ECG Findings: negative for ischemia Clinical Findings: negative for ischemia Nuclear Findings: negative for ischemia Exercise Capacity: not assessed Left Ventricular Function: abnormal negative lexiscan ekg, normal myocardial perfusion, dilated lv in rest and stress and moderate lv dsyfunction ef 35% suggestive of non ischemic cardiomyopathy, no significant ischemia noted
[2021-03-21] MEDS: LISINOPRIL 20 MG TAB PO SCH (11:33)
[2021-03-21] MEDS: METOPROLOL TARTRATE 25 MG TAB PO SCH (11:33)
--- NOTE | 2021-03-21 14:10 | Discharge Summary ---
Providers - Providers Date of Admission: 03/20/21 14:14 Date of discharge: 03/21/21 Attending physician: MELINDA COONEY 03/19/21 22:09 Consult to Dietitian/Nutrition [CONS] Routine Physician Instructions: Reason For Exam: Reason for Consult: Diet education 03/20/21 14:14 Consult to Physician [CONS] Routine Comment: Consulting Provider: CÉSAR WRIGHT Physician Instructions: Reason For Exam: new onset CHF Primary care physician: [employer] Hospitalization Condition: Critical Pertinent studies: Myocardial stress test CXR 2d echo Hospital course: 50-year-old female with past medical history of hypertension diabetes was brought to the emergency room with complaints of shortness of breath been going on for 3 months. In the emergency room patient's BNP is 1419. Chest x-ray shows prominent cardiac silhouette with interstitial edema and small bilateral pleural effusion. Patient was admitted for new onset CHF exacerbation. Patient was admitted to telemetry floor with scheduled iv diuretics. Monitored with serial CE, EKG. Cardiology consulted, 2d echo obtained which showed EF of 25 to 30%. Provided cardiac diet, daily weights, monitored in's and O's. Patients symptom improved with medical management. Her antihypertensives were readjusted for better blood pressure control. Myocardial stress test was obtained and showed no reversible ischemia. Patient was cleared by cardiology for discharge. Patient was then discharged home in stable condition with outpt f/u. Disposition: DC-01 TO HOME OR SELFCARE Final Discharge Diagnosis (Prints w/discharge instructions): --New onset of congestive heart failure rEf 25%. --Hypertensive urgency, malignant. --Acute hypoxemia, resolved. -- Diabetes 1.5, managed as type 2. --Morbid obesity Time spent for discharge: 38 minutes Core Measure Documentation - Palliative Care Palliative Care/ Comfort Measures: Not Applicable - Core Measures Any of the following diagnoses?: none Exam - Physical Exam Narrative exam: GENERAL: well-developed morbidly obese -[place]er female lying on bed appeared to be in no discomfort. HEENT: Normocephalic. Atraumatic. No conjunctival congestion or icterus. Patient has moist mucous membranes. NECK: Supple. Trachea midline. CHEST/LUNGS: Few crackles auscultated bilaterally, breathing nonlabored. No wheezes crackles or rhonchi. HEART/CARDIOVASCULAR: Regular in rate and rhythm. S1 and S2 positive. ABDOMEN: Abdomen is soft, nontender. Patient has normal bowel sounds. SKIN: There is no rash. Warm and dry. NEURO: No focal motor deficit. Follows command. MUSCULOSKELETAL: No joint effusion or tenderness. EXTRIMITY: 1+ pitting edema, no cyanosis or clubbing. PSYCH: Cooperative. - Constitutional Vitals: Temp Pulse Resp BP Pulse Ox 97.5 F L 81 20 157/91 97 03/21/21 07:41 03/21/21 08:00 03/21/21 07:41 03/21/21 08:33 03/21/21 09:07 Plan Activity: advance as tolerated Weight Bearing Status: Weight Bear as Tolerated Diet: diabetic Special Instructions: restrict fluid intake to Follow up with: PRIMARY CARE, [Primary Care Provider] - 7 Days Forms: Work/School Release Form Prescriptions: AtorvaSTATin [Lipitor] 20 mg PO QHS #30 tablet Spironolactone [Aldactone] 25 mg PO QDAY #30 tablet amLODIPine 10 mg PO QDAY #30 tablet Furosemide [Lasix TAB] 40 mg PO QDAY #30 tablet Metoprolol [Lopressor TAB] 25 mg PO BID #60 tablet lisinopriL [Zestril TAB] 20 mg PO BID #60 tablet
[2021-03-22] MEDS ORDERED: FUROSEMIDE 40 MG TAB PO SCH (10:00)
== END 2021-03-21 16:08 | disposition home or self-care (01) | DRG 291 ==
LOC: ED 18:20 → 4A 21:45 → OBSVTOIN 03-20 14:14
PROVIDERS: ADMIT Hospitalist; ATTEND Internal Medicine
DX: I11.0 Hypertensive heart disease with heart failure (principal); I50.21 Acute systolic (congestive) heart failure; I16.0 Hypertensive urgency; I42.9 Cardiomyopathy, unspecified; E87.6 Hypokalemia; G47.33 Obstructive sleep apnea (adult) (pediatric); I27.20 Pulmonary hypertension, unspecified; E66.01 Morbid (severe) obesity due to excess calories; J45.909 Unspecified asthma, uncomplicated; E11.9 Type 2 diabetes mellitus without complications; Z79.82 Long term (current) use of aspirin; Z79.899 Other long term (current) drug therapy; Z79.84 Long term (current) use of oral hypoglycemic drugs; Z83.3 Family history of diabetes mellitus; Z80.9 Family history of malignant neoplasm, unspecified; Z82.3 Family history of stroke; Z68.35 Body mass index [BMI] 35.0-35.9, adult
CPT/HCPCS: 36415; 71046; 78452; 80048; 80053; 82962; 83690; 83735; 83880; 84484; 85025; 85379; 85610; 85730; 93005; 93017; 93306; 94640; G0378; A9502; J0360; J1644; J1815; J1940; J2785

== ENCOUNTER 2021-12-30 07:04 | Day surgery (SDC) | payer BC ==
[2021-12-30] MEDS ORDERED: ASPIRIN EC 325 MG TAB PO NR (07:27)
[2021-12-30] MEDS ORDERED: SODIUM CHLORIDE 0.9% 500 ML 500 ML IV SCH (08:00)
[2021-12-30] MEDS ORDERED: HEPARIN 10,000 UNITS/10 ML VIAL ONE (08:30)
[2021-12-30] MEDS ORDERED: HEPARIN/NS 5000 UNIT/500ML 1,000 ML IR ONE (08:30)
[2021-12-30] MEDS ORDERED: VERAPAMIL 5 MG/2 ML INJ ONE (08:31)
[2021-12-30] MEDS ORDERED: NITROGLYCERIN SYRINGE 3 ML ONE (08:33)
[2021-12-30] MEDS ORDERED: LIDOCAINE MPF (2%) 20 MG/1 ML VIAL 5 ML ONE (08:35)
[2021-12-30] MEDS: MIDAZOLAM 2 MG/2 ML INJ ONE ×2 (09:34→09:48)
[2021-12-30] MEDS: fentaNYL 100 MCG/2 ML INJ ONE ×2 (09:34→09:48)
--- NOTE | 2021-12-30 10:19 | Short Stay Summary ---
Short Stay Documentation Date of service: 12/30/21 - History H&P: obtained from office - Allergies and Medications Current Medications: Allergies No Known Allergies Allergy (Verified 10/07/18 13:42) Home Medications Medication Instructions Recorded Confirmed Last Taken Type Aspirin [Aspir-Low] 81 mg PO DAILY 10/07/18 12/30/21 12/29/21 History Metformin HCl [Glucophage] 1,000 mg PO BID 10/07/18 12/30/21 12/29/21 History buPROPion HCL [buPROPion] 75 mg PO BID 10/07/18 12/30/21 12/29/21 History traZODone [Desyrel] 50 mg PO QHS 10/07/18 12/30/21 12/29/21 History AtorvaSTATin [Lipitor] 20 mg PO QHS #30 tablet 03/21/21 12/30/21 12/29/21 Rx Metoprolol [Lopressor TAB] 25 mg PO BID #60 tablet 03/21/21 12/30/21 12/29/21 Rx Diclofenac Sodium 75 mg PO PRN PRN 12/30/21 12/30/21 Unknown History Furosemide [Lasix TAB] 20 mg PO QDAY 12/30/21 12/30/21 12/29/21 History Insulin Degludec [Tresiba 75 unit SQ QHS 12/30/21 12/30/21 12/29/21 History Flextouch U-200] Sacubitril/Valsartan [Entresto 97 1 tab PO BID 12/30/21 12/30/21 12/29/21 History mg-103 mg Tablet] Sitagliptin Phosphate [Januvia] 100 mg PO DAILY 12/30/21 12/30/21 12/29/21 History amLODIPine 5 mg PO QDAY 12/30/21 12/30/21 12/29/21 History traMADoL [Ultram] 50 mg PO Q12H PRN 12/30/21 12/30/21 Unknown History Active Medications Sodium Chloride (Nacl 0.9% 500 Ml) 500 mls @ 50 mls/hr IV DIRECT BRAEDEN Stop: 12/30/21 17:59 - Physical exam Integumentary: other (Dressing clean dry and intact with no signs of bleeding or hematoma) - Brief post op/procedure progress note Date of procedure: 12/30/21 Pre-op diagnosis: Cardiomyopathy Post-op diagnosis: same Anesthesia: local Estimated blood loss: minimal - Hospital course Hospital course: Patient presents today for cardiac cath. Patient tolerated procedure well with no complications - Disposition Condition at discharge: Good Disposition: 01 HOME / SELF CARE / HOMELESS - Discharge Diagnoses (1) Systolic heart failure Status: Acute (2) Cardiomyopathy Status: Acute (3) Diabetes 1.5, managed as type 2 Status: Acute (4) HTN (hypertension) Status: Chronic Qualifiers: Hypertension type: essential hypertension Short Stay Discharge Plan Activity: advance as tolerated Diet: low fat, low cholesterol, low salt Wound: keep clean and dry, per your surgeon's advice Follow up with: PRIMARY MD TAMI [Primary Care Provider] - 7 Days CÉSAR HARRIS MD [Staff Physician] - 7 Days (Patient has a follow-up appointment with Dr. Harris on 02/09/2022 at 1:15 PM at our [place] location. Phone #[phone])
--- NOTE | 2021-12-30 10:28 | Electrocardiograph Report ---
[facility] Test Date: 2021-12-30 Test Time: 07:20:33 Pat Name: PATRICIA CORREA Department: Room: Gender: F Ultrasound Technologist: CATE : 1970 Requested By: KENNY HARRIS Order Number: [id number] Reading MD: Kenny Harris Measurements Intervals [place] Rate: 81 P: 53 AK: 145 QRS: 12 QRSD: 96 T: 17 QT: 368 QTc: 429 Interpretive Statements Sinus rhythm Compared to ECG 03/19/2021 20:13:37 Sinus tachycardia no longer present Electronically Signed On 12-30-2021 10:27:39 EST by Kenny Harris
[2021-12-30] MEDS ORDERED: HYDROcodone/ACETAMINOPHEN 5-325 MG TAB PO PRN (10:30)
[2021-12-30] MEDS ORDERED: traMADol 50 MG TAB PO PRN (10:30)
[2021-12-30 15:22] VITALS: BP 127/65
--- NOTE | 2021-12-30 16:42 | Cardiac Catherization Report ---
DATE OF SERVICE: 12/30/2021 LEFT HEART CATHETERIZATION CLINICAL INFORMATION: This is a 51-year-old female with cardiomyopathy with persistent LV dysfunction, here for left heart catheterization for ischemic evaluation. The patient was done with moderate sedation started at 0934, finished at 0959 and 2.5 minutes of moderate sedation. DESCRIPTION OF PROCEDURE: Left heart catheterization performed via the right radial artery, sterile technique and local anesthesia. A 6-Mauritanian radial sheath inserted. Left system engaged with JL3.5 guidewire, left main is large and patent. LAD is a medium caliber vessel, patent. Diagonal 1, diagonal 2 small caliber was patent. Circumflex medium caliber patent, small OM1, patent. OM2, OM3 small to medium caliber vessel, patent. RCA is a medium caliber vessel, patent. PDA, PLV are small to medium caliber was patent. LV gram done in FRENCH and shows borderline LV function, EF 50%. LVEDP at 20 mmHg, LV is 124, aortic is 123/77. No gradient across the valve on pullback. The 5-Mauritanian catheters all taken over guidewire. A 6-[place]auritanian radial sheath was discontinued. Radial dressing applied. No plaque, no bleeding. SUMMARY: Left main patent, LAD patent, circumflex patent, RCA patent. Borderline normal LV function, EF 50% with normal left end-diastolic pressure. Discussed this with the patient and the patient's family in detail. TID: [id number] RECEIPT: [id number] GERMÁN/TIM/CLEMENTE
== END 2021-12-30 14:00 | disposition home or self-care (01) ==
LOC: CATHLABREC 07:04
PROVIDERS: ATTEND Internal Medicine
DX: I42.0 Dilated cardiomyopathy (principal); I11.0 Hypertensive heart disease with heart failure; I50.22 Chronic systolic (congestive) heart failure; E10.9 Type 1 diabetes mellitus without complications; E78.2 Mixed hyperlipidemia; J45.909 Unspecified asthma, uncomplicated; G47.33 Obstructive sleep apnea (adult) (pediatric); E66.9 Obesity, unspecified; F32.9 Major depressive disorder, single episode, unspecified; M19.90 Unspecified osteoarthritis, unspecified site; Z98.890 Other specified postprocedural states; Z79.899 Other long term (current) drug therapy; Z79.4 Long term (current) use of insulin; Z68.35 Body mass index [BMI] 35.0-35.9, adult; Z79.82 Long term (current) use of aspirin; Z82.49 Family history of ischemic heart disease and other diseases of the circulatory system
CPT/HCPCS: 93005; 93458; 99156; 99157; C1894; J1644; J1815; J2250; J3010; J3490; J7040; Q9967